=== PATIENT | female | born 1945 | race Caucasian/White ===

== ENCOUNTER → 2023-04-28 08:39 | Outpatient (REF) | payer MEDICARE, BC, SELFPAY | LOC: HWRAD 08:39 | PROVIDERS: ATTENDING PHYSICIAN Physician Assistant Medical; FAMILY PHYSICIAN Family Medicine | DX: M25.562 Pain in left knee (principal) | CPT/HCPCS: 76882 ==

== ENCOUNTER → 2023-05-28 13:02 | Outpatient (REF) | payer MEDICARE, BC, SELFPAY | LOC: PAVMRI 13:02 | PROVIDERS: ATTENDING PHYSICIAN Family Medicine | DX: M25.562 Pain in left knee (principal); R22.42 Localized swelling, mass and lump, left lower limb | CPT/HCPCS: 73721 ==

== ENCOUNTER 2023-07-06 19:33 | Inpatient (IN) | payer MEDICARE, BC, SELFPAY ==
[2023-07-06] VITALS (14 sets, daily range): BP systolic 101–155; BP diastolic 53–94; PULSE 59–70
[2023-07-06 14:38] LABS: % Basophils 0.3 % (0-2); % Immature Granulocytes 0.5 % (0-0.5); % Lymphocytes 16.6 % (20.5-51.1); % Neutrophils 71.6 % (42.2-75.2); Absolute Eosinophils 0.1 10^3/uL (0-0.7); Absolute Lymphocytes 1.1 10^3/uL (1.2-3.4); Absolute Monocytes 0.6 10^3/uL (0.1-0.6); Absolute Neutrophils 4.5 10^3/uL (1.4-6.5); Hematocrit 39.3 % (37.0-47.0); Hemoglobin 13.6 g/dL (12.0-16.0); Mean Corp Hgb Conc. 34.6 g/dL (33.0-37.0); Mean Corpuscular Hgb 30.9 pg (27.0-31.0); Mean Corpuscular Volume 89.3 fL (81.0-99.0); Mean Platelet Volume 9.5 fL (7.4-10.4); Nucleated Red Blood Cells % 0 %; Platelet Count 198 10^3/uL (130-400); Red Cell Dist. Width 13.2 % (11.5-14.5); White Blood Cell Count 6.3 10^3/uL (4.8-10.8)
[2023-07-06 15:10] LABS: ALT (SGPT) 29 U/L (0-35); AST (SGOT) 35 U/L (14-36); Albumin 4.3 g/dl (3.5-5.0); Alkaline Phosphatase 61 U/L (38-126); Blood Urea Nitrogen 20 mg/dl (7-17); Calcium 9.8 mg/dl (8.4-10.2); Carbon Dioxide 33 mmol/L (22-30); Chloride 100 mmol/L (98-107); Glucose 111 mg/dl (70-99); Potassium 2.8 mmol/L (3.5-5.1); Sodium 138 mmol/L (135-145); Total Bilirubin 0.9 mg/dl (0.2-1.3); Total Protein 7.1 g/dl (6.3-8.2); eGFR 57.31
[2023-07-06 15:22] LABS: Troponin I < 0.012 ng/ml
--- NOTE | 2023-07-06 16:06 | ED.GENMED ---
History of Present Illness
General
Chief Complaint: Blood Pressure Problem
Source: patient and spouse
Exam Limitations: none
Time Seen by Provider: 07/06/23 16:00
Nursing documentation reviewed up to this point in time: agreed with
Travel History
Have you had any contact with someone who has COVID-19?: No
Do you have any symptoms of coronavirus? Fever > 100 degrees, chills, cough, shortness of breath, sore throat, loss of taste or smell, muscle aches, or headache?: No
History of Present Illness
History of Present Illness:
78-year-old female with history of A-fib on Eliquis, HTN presents stating that over past 6 days has been feeling 'fuzzy' in her head and fatigued . Denies CP, SOB, abd pain. Denies fever or chills. Denies N/V/D/C.
Past History
Past History
ED Past Medical History: Arrthythmia (Afib many years ago), HTN and Other (Gastric ulcer and hiatal hernia)
ED Past Surgical History: Gynecological and Other
Social History
Tobacco: Non-smoker
Alcohol: None
Drug: None
Personal:
Living: with family
Employment: Retired
Review of Systems
Review of Systems
Allergies reviewed?: Yes
All Other Systems: ROS reviewed and negative except as documented in HPI and ROS
Constitutional: Reports fatigue; Denies fever
Respiratory: Denies trouble breathing
Cardiac: Denies chest pain
ABD/GI: Denies abdominal pain, nausea, vomiting, diarrhea or anorexia
: Denies dysuria, frequency, difficulty voiding or urgency
Musculoskeletal: Reports no symptoms
Skin: Reports no symptoms
Neurological: Reports other (lightheaded); Denies dizzy, headache, weakness or numbness
Phy Exam
Physical Exam
Physical Exam:
GENERAL: No acute distress. A&Ox3.
CONSTITUTIONAL: Afebrile.
EYES: PERRL, conjunctivae normal
ENMT: moist mucus membranes, Pharynx nl
RESPIRATORY: Regular respirations, nonlabored, lungs clear.
CARDIOVASCULAR: Regular rate and rhythm, no murmurs, no rubs.
GI: Soft, nontender, normal BS
MUSCULOSKELETAL: Moves with ease. Well perfused. No edema
SKIN: Warm, dry, pink
PSYCH: Normal mood and affect. Well kept, interactive and appropriate
NEUROLOGIC: Awake, alert and oriented. Speech clear, CN 2-12 intact. ambulates well with steady gait. No focal neurological deficits
Course
Orders/Labs/Results
Orders:
Orders
07/06/23 14:09
Electrocardiogram (*1) Urgent
Reason for Study: Chest Pain
EKG- Treatment ONCE
O2 Therapy [RESP] Urgent
Titrate/Wean O2 to maintain O2 sat greater than (%): 90
Special Instructions: Maintain sats >/=90%
Pulse Ox/spot Check [RESP] Urgent
Quantity: 1
Special Instructions: ON ROOM AIR
07/06/23 14:30
Complete Blood Count/With Diff Urgent
Comprehensive Metabolic Panel Urgent
Magnesium Urgent
Comment: ADD ON
Troponin I Urgent
07/06/23 16:01
0.9% Sodium Chloride 500 ml [Nss] 500 ml IV BOLUS
07/06/23 16:06
Orthostatic VS- Treatment ONCE
07/06/23 16:38
Potassium Chloride [KCl] 20 meq 0.9% Sodium Chloride 250 ml [Nss] 250 ml IV NOW
07/06/23 17:17
Urinalysis Reflex To Culture Urgent
Date Specimen was Collected: 07/06/23
Time Specimen was Collected: 17:02
Urine Microscopic Reflex Cult Urgent
07/06/23 18:35
Add On- LAB Urgent
Tests Added?: Magnesium
07/06/23 19:22
Admit/Transfer Patient As Directed
Co-Sign Provider:
Level of Care: Inpatient admission
Assign to:: Telemetry
Physician / Group: [email or web address]
Diagnosis: symtomatic hypokalemia, dehydration, contraction alkalosis
Reason for Telemetry: Arrhythmia
Date to Stop Telemetry: 07/09/23
Time to Stop Telemetry: 11:00
Reason for Hospitalization: symtomatic hypokalemia, dehydration, contraction alkalosis
Expected length of stay greater than two midnights?: Yes
ELOS- Estimated Length of Stay in days: 2
I certify the patient meets the requirements for IP care: Yes
07/06/23 19:26
Code Status As Directed
Resuscitation Status: Full Code
07/09/23 11:00
DC Protocol for Telemetry ONCE
Abnormal Lab Results
07/06/23 07/06/23
14:30 17:17
Absolute Lymphs (auto) 1.1 L 10^3/uL
(1.2-3.4)
Lymphocytes % 16.6 L %
(20.5-51.1)
Monocytes % 10.0 H %
(1.7-9.3)
Potassium 2.8 L mmol/L
(3.5-5.1)
Carbon Dioxide 33 H mmol/L
(22-30)
BUN 20 H mg/dl
(7-17)
Glucose 111 H mg/dl
(70-99)
Ur Occult Blood Reflex 1+ A
(Negative)
Leukocyte Esterase Rfl Trace A
(Negative)
Urine RBC 3-6 A /HPF
(0-2)
07/06/23 14:30
07/06/23 14:30
Vital Signs
Initial and Last Documented VS:
Initial Vital Signs
Temp Pulse Resp BP Pulse Ox
98.1 F 85 16 132/94 97
07/06/23 14:10 07/06/23 14:10 07/06/23 14:10 07/06/23 14:10 07/06/23 14:10
Last Documented Vital Signs
Temp Pulse Resp BP Pulse Ox
98.2 F 75 17 102/79 94
07/06/23 19:08 07/06/23 19:08 07/06/23 19:08 07/06/23 16:15 07/06/23 19:47
MDM/Problems Addressed
Differential Diagnosis Includes:
dehydration patient, UTI
MDM/Problems Addressed:
78-year-old female with history of A-fib on Eliquis, HTN presents stating that over past 6 days has been feeling 'fuzzy' in her head and fatigued . Denies CP, SOB, abd pain. Denies fever or chills. Denies N/V/D/C.
Afebrile, NAD
NSR, RBBB
4:00 PM
CBC normal
CMP shows hypokalemia with a potassium of 2.8, BUN 20 otherwise no clinically significant abnormality
Troponin within normal limits
Orthostatics negative
6:35 P.M.
Case discussed with Dr. Richter
Plan: Admit: Hypokalemia, Mg++ pending
Chronic conditions affecting care: HTN and Arrhythmia
*Critical Care Note
Total Time (30-74mins, 75-104mins- exclusive of procedures): Not Applicable
ED Attending Note
-
Portions of this chart may have been created with voice recognition software.� Occasional wrong word or��sound alike� substitutions may have occurred due to the inherent limitations of voice recognition software.
Discharge Plan
Departure
Patient Disposition: Admit
Date of Disposition: 07/06/23
Time of Disposition: 18:36
Admit to: Telemetry
Presentation/result/management discussed w/ accepting MD/DO: Hospitalist
Condition: Fair
Discharge Problem:
Acute hypokalemia
Interventions
Interventions:
*Risk Screen - Suicide Last Done: 07/06/23 14:10
*General Assessment Last Done: 07/06/23 14:10
*Neglect/Abuse Screening Last Done: 07/06/23 14:10
*ED COVID-19 Vaccine History Last Done: 07/06/23 14:10
ED- Cardiac Assessment Last Done: 07/06/23 19:45
ED- Neurological Assessment Last Done: 07/06/23 19:46
ED- Pulmonary Assessment Last Done: 07/06/23 19:47
[2023-07-06] MEDS: NSS 500 IV (17:08)
[2023-07-06] MEDS: KCL 260 MEQ IV (17:09)
[2023-07-06 17:31] LABS: Urine Albumin Negative (Neg - Trace); Urine Bilirubin Negative (Negative); Urine Character Clear (Clear); Urine Color Yellow; Urine Glucose Negative (Negative); Urine Ketone Negative (Negative); Urine Leukocyte Trace (Negative); Urine Nitrite Negative (Negative); Urine Occult Blood 1+ (Negative); Urine Urobilinogen Negative (Neg - 1+)
[2023-07-06 17:41] LABS: Urine Squamous Cell 0-2 /LPF (Few)
[2023-07-06 19:10] LABS: Magnesium 2.2 mg/dl (1.6-2.3)
--- NOTE | 2023-07-06 19:18 | HPS.HSE ---
Family Physician
-
Family Physician: Emanuel Fox
Chief Complaint
-
weakness and dizzy
History of Present Illness
78F HX HTN on HCTZ , Chr Eliquis for Prx AF sent to ER by PCP for weakness, dizziness for evaluation.
Weakness
- gradual onset
- No falls
- feeling foggy in the head
- Associated dizziness
- No N/V/D
- omn HCTZ for BP
- Not on K supplelent
AT ER: Lowest BP at ER 102/84
Labs: K 2.8 HCO3 33 BUN 20
Medical History
Past Medical History
Past Medical History: Reports Arrhythmia (Prx AF on Eliquis ), HTN and Hypercholesterolemia
Additional Past Medical History:
Gastric ulcer and hiatal hernia
Past Surgical History: Reports Gynocological
Social History
Tobacco: Non-smoker
Alcohol: None
Drug: None
Personal:
Living: With Family
Family History
Family History: Not pertinent
Allergies / Home Medications
Allergies reflects when Allergies were last updated in [email or web address].
Home Medications with original date entered in [email or web address]
Allergy/Medication List:
Allergies
Allergy/AdvReac Type Severity Reaction Status Date / Time
clarithromycin Allergy Mild Swelling Verified 04/02/23 16:05
erythromycin base Allergy Mild Unknown Verified 04/02/23 16:05
Iodinated Contrast Media Allergy Mild Rash Verified 04/02/23 16:05
Home Medications
cholecalciferol (vitamin D3) 50 mcg (2,000 unit) capsule (Vitamin D3) 2,000 unit PO DAILY 09/17/19
hydrochlorothiazide 25 mg tablet 25 mg PO DAILY 09/17/19
rosuvastatin 20 mg tablet 20 mg PO DAILY 09/17/19
telmisartan 40 mg tablet 40 mg PO DAILY 09/17/19
apixaban 5 mg tablet (Eliquis) 5 mg PO BID 07/06/23
estradiol 10 mcg vaginal tablet (Yuvafem) 10 mcg vaginal MONTHLY PRN hormone replacement 07/06/23
magnesium hydroxide 400 mg/5 mL oral suspension (Milk of Magnesia) 2,400 mg PO DAILYPRN PRN constipation 07/06/23
metoprolol succinate 100 mg tablet,extended release 24 hr (Toprol XL) 100 mg PO DAILY 07/06/23
Review of Systems
-
Constitutional: Reports No Symptoms
EENT: Reports No Symptoms
Respiratory: Reports No Symptoms
Cardiac: Reports No Symptoms
Abdomen/GI: Reports No Symptoms
: Reports No Symptoms
Musculoskeletal: Reports No Symptoms
Skin: Reports No Symptoms
Neurological: Reports Weakness
Endocrine: Reports No Symptoms
Hematologic/Lymphatic: Reports No Symptoms
Psych: Reports No Symptoms
Physical Exam
Vital Signs
Vital Signs
Temp Pulse Resp BP Pulse Ox
98.2 F 75 17 102/79 97
07/06/23 19:08 07/06/23 19:08 07/06/23 19:08 07/06/23 16:15 07/06/23 19:08
Physical Exam
General: No Apparent Distress, Comfortable and Conversant
HEENT: NormoCephalic and Anicteric
Respiratory: Clear; No Wheezes, Rales or Rhonchi
Cardiac: S1/S2, Regular Rhythm and Other (mild hypotensive episode )
Breast: Deferred by me
GI: Soft, Non Tender, Non Distended and Normal Bowel Sounds
Rectal: Deferred by Provider
Genito-urinary: Deferred by me
Musculoskeletal: No Edema
Skin: Warm and Dry
Neuro: AO x 3 and No Motor Deficits
Psych: Calm
Laboratory Results
-
07/06/23 14:30
07/06/23 14:30
Laboratory Results
Total Bilirubin 0.9 mg/dl (0.2-1.3) 07/06/23 14:30
AST 35 U/L (14-36) 07/06/23 14:30
ALT 29 U/L (0-35) 07/06/23 14:30
Alkaline Phosphatase 61 U/L (38-126) 07/06/23 14:30
Troponin I < 0.012 ng/ml 07/06/23 14:30
Data Reviewed
-
Medical Tests (Nuc Med, Echo, EKG etc): Report Reviewed by me
Lab Data: Labs Reviewed by me
Impression/Plan
-
Data
Nl CBC
K 2.8 bl low 3.5s Mg 2.2
CO3 33
BUN 20
e GFR 57 bl > 60
NEG TPNI
NEG UA
EKG
NORMAL SINUS RHYTHM
RIGHT BUNDLE BRANCH BLOCK
ABNORMAL ECG
WHEN COMPARED WITH ECG OF 19-AUG-2021 11:22,
NO SIGNIFICANT CHANGE WAS FOUND
11/01/19 ECHO
Estimated LVEF 55-60%.
Normal diastolic function.
No significant valve disease. Normal PASP.
ASSESSMENT & PLAN
Symptomatic hypokalemia due to HCTZ
Hypotensive due to mild dehydration
suspect contraction alkalosis
- s/p IV KCL 20 at ER
- Repeat KCK 40 [place]
- daily 20 KCL BID in AM x 3 more dose and trend K
- Held HCTZ for now
- IV NS @ 80/H
- f/u ortho [facility] HTN
- held HCTZ
- cont Telmisartan
In NSR
HX Prx AF
- cont Eliquis and Toprol XL
HLD on Rosuvastatin
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
Full code
IP TLM
[2023-07-06] MEDS: KCL 270 MEQ IV (20:10)
[2023-07-07 00:13] VITALS: BP 160/77
[2023-07-07] MEDS: ELIQUIS 5 MG PO ×2 (00:13→08:45)
[2023-07-07] MEDS: KCL 20 MEQ PO ×2 (00:13→08:45)
[2023-07-07 00:21] VITALS: BMI 29.9
--- NOTE | 2023-07-07 00:24 | PTCARENOTE ---
pt is aaox3, no c/o pain, no dizziness. IV potassium running. pt ambulated to room x1. pt is oriented to room w/ call zavala in [facility]. will monitor/.
[2023-07-07 04:41] VITALS: BP 116/103
--- NOTE | 2023-07-07 05:03 | DOWNTIME ---
There was a [employer] Client Application Support Intern Downtime on 07/07/2023 from 0100 to 07/07/2023 at 0439. Downtime documentation of patient's care, including medication administrations, has been reconciled in the electronic record per guidelines. Refer to the
patient's paper chart under the miscellaneous tab to see printed paper medication records and downtime forms.
[2023-07-07 05:58] LABS: Blood Urea Nitrogen 20 mg/dl (7-17); Calcium 9.1 mg/dl (8.4-10.2); Carbon Dioxide 27 mmol/L (22-30); Chloride 109 mmol/L (98-107); Estimated Creatinine Clearance 54 ml/min; Glucose 105 mg/dl (70-99); Magnesium 2.1 mg/dl (1.6-2.3); Potassium 3.7 mmol/L (3.5-5.1); Sodium 140 mmol/L (135-145); eGFR > 60.00
[2023-07-07 06:00] VITALS: BMI 29.9
[2023-07-07 07:17] VITALS: BP 135/71
[2023-07-07 07:18] VITALS: BP 130/82; BP 135/71; BP 146/79; PULSE 75; PULSE 80; PULSE 81
[2023-07-07 07:20] VITALS: BP 146/79
[2023-07-07 07:22] VITALS: BP 130/82
--- NOTE | 2023-07-07 08:04 | PTCARENOTE ---
Received patient this morning resting in bed. Orthostatic VS done which were negative, call zavala within reach, patient ordering breakfast.
--- NOTE | 2023-07-07 08:12 | W.PN.HOSP.TC ---
Today's Communication/Plan
-
Discharge
Assessment / Plan
Assessment / Plan
Gen-AAOx3, NAD
HEENT-NC, AT, anicteric, clear oral mm
Neck-supple
CV-reg, no M, +S1/S2
Lungs-clear B/L
Abd-soft, NT, ND
Ext-no edema
Musculoskeletal-no cyanosis, clubbing
Skin-warm and dry
Neuro-grossly non-focal
Psych-calm, cooperative
Symptomatic hypotension -I looked at the readings of her blood pressures at home, they are running systolics between 95 and 105. At this point we can permanently discontinue hydrochlorothiazide. Continue to monitor blood pressures at home.
She is not orthostatic.
Hypokalemia -treated and resolved.
Paroxysmal atrial fibrillation -stable. Continue Eliquis.
Essential hypertension -as above.
Hyperlipidemia -continue Crestor.
Full code
Dispo -medically stable for discharge home today. Follow-up with PCP and cardiology.
Anticipated Discharge: Today
Subjective/Interval History
-
Date of Service: July 07, 2023
Patient seen and examined. Feeling much better. No complaints.
Objective Data
-
Labs:
Laboratory Results
07/07/23
05:00
Sodium 140
Potassium 3.7 D
Chloride 109 H
Carbon Dioxide 27
BUN 20 H
Creatinine 0.8
Glucose 105 H
Calcium 9.1
Vital Signs:
Vital Signs
Temp Pulse Resp BP Pulse Ox
97.5 F 88 18 130/82 95
07/07/23 07:25 07/07/23 07:22 07/07/23 07:25 07/07/23 07:22 07/07/23 07:25
Review of Systems
-
History Source: Patient
All other systems: Reviewed and negative
--- NOTE | 2023-07-07 08:17 | W.DS.TRANS ---
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
-
Discharge Instructions:
Discharge Diagnosis/Procedures Symptomatic hypotension, hypokalemia
Diet Low Cholesterol,Low Fat
Activity As tolerated
Driving Restrictions As prior to admission
Bathing Restrictions None
Instructions:
Stand-Alone Forms:
Changes to Home Medications: Yes
Discharge Medications:
DC Medications w/original date entered in [employer]
cholecalciferol (vitamin D3) 50 mcg (2,000 unit) capsule (Vitamin D3) 2,000 unit PO DAILY 09/17/19
rosuvastatin 20 mg tablet 20 mg PO DAILY 09/17/19
telmisartan 40 mg tablet 40 mg PO DAILY 09/17/19
apixaban 5 mg tablet (Eliquis) 5 mg PO BID 07/06/23
estradiol 10 mcg vaginal tablet (Yuvafem) 10 mcg vaginal MONTHLY PRN hormone replacement 07/06/23
magnesium hydroxide 400 mg/5 mL oral suspension (Milk of Magnesia) 2,400 mg PO DAILYPRN PRN constipation 07/06/23
metoprolol succinate 100 mg tablet,extended release 24 hr (Toprol XL) 100 mg PO DAILY 07/06/23
polyethylene glycol 3350 17 gram oral powder packet (HealthyLax) 17 g PO DAILYPRN PRN constipation #0 ea 07/07/23
Home Medication Changes
Stop HCTZ
Pending Results: No
[2023-07-07] MEDS: CRESTOR 20 MG PO (08:45)
[2023-07-07] MEDS: COZAAR 25 MG PO (08:45)
[2023-07-07] MEDS: FLUSH (NSS) 1 FLUSH IV (08:45)
[2023-07-07] MEDS: TOPROL XL 100 MG PO (08:45)
--- NOTE | 2023-07-07 08:51 | CM ---
Reviewed chart. Met with Mrs. Cervantes to review discharge plans. She states prior to admission she resides with her spouse in a spilt level home without any steps to enter. She states she has six steps to get to bedroom/full bathroom. She states
prior to admission she was independent with ambulation and adls. She states she does not have any DME in the home. She states she uses a knee brace. She states she has a prescription plan and uses [facility]. Medical work-up in progress. The
discharge plan is to return home with her spouse when medically stable.
--- NOTE | 2023-07-07 09:50 | PTCARENOTE ---
Patient seen by hospitalist and is ok for discharge. Reviewed discharge instructions with the patient, she is aware to stop HCTZ and follow up with her primary within one week. Patient discharged home with her .
== END 2023-07-07 09:54 | disposition home or self-care (01) | DRG 315 ==
LOC: IVU 19:33
PROVIDERS: Registered Nurse; ADMITTING PHYSICIAN Internal Medicine; ATTENDING PHYSICIAN Hospitalist; EMERGENCY PHYSICIAN Emergency Medicine; FAMILY PHYSICIAN Family Medicine
DX: I95.9 Hypotension, unspecified (principal); E87.3 Alkalosis; E86.0 Dehydration; E87.6 Hypokalemia; I10 Essential (primary) hypertension; I48.0 Paroxysmal atrial fibrillation; E78.00 Pure hypercholesterolemia, unspecified
CPT/HCPCS: 80048; 80053; 81003; 81015; 83735; 84484; 85025; 93005; 96360; 96361; 99285

== ENCOUNTER → 2023-09-02 08:02 | Outpatient (REF) | payer MEDICARE, BC, SELFPAY | LOC: RCS 08:02 | PROVIDERS: ATTENDING PHYSICIAN Internal Medicine Cardiovascular Disease; FAMILY PHYSICIAN Family Medicine | DX: I48.0 Paroxysmal atrial fibrillation (principal); I45.10 Unspecified right bundle-branch block | CPT/HCPCS: 93306 ==

== ENCOUNTER → 2023-10-28 14:49 | Outpatient (REF) | payer MEDICARE, BC, SELFPAY ==
[2023-10-28 16:45] LABS: Blood Urea Nitrogen 23 mg/dl (7-17); Calcium 9.9 mg/dl (8.4-10.2); Carbon Dioxide 31 mmol/L (22-30); Chloride 100 mmol/L (98-107); Glucose 91 mg/dl (70-99); Potassium 3.9 mmol/L (3.5-5.1); Sodium 138 mmol/L (135-145); eGFR > 60.00
== END ==
LOC: REG 14:49
PROVIDERS: ATTENDING PHYSICIAN Family Medicine
DX: I10 Essential (primary) hypertension (principal)
CPT/HCPCS: 36415; 80048

== ENCOUNTER → 2023-12-14 12:05 | Outpatient (REF) | payer MEDICARE, BC, SELFPAY ==
[2023-12-14 13:42] LABS: % Basophils 0.5 % (0-2); % Eosinophils 1.8 % (0-6); % Immature Granulocytes 0.2 % (0-0.5); % Lymphocytes 18.2 % (20.5-51.1); % Monocytes 8.7 % (1.7-9.3); % Neutrophils 70.6 % (42.2-75.2); Absolute Eosinophils 0.1 10^3/uL (0-0.7); Absolute Monocytes 0.5 10^3/uL (0.1-0.6); Hematocrit 40.4 % (37.0-47.0); Hemoglobin 13.3 g/dL (12.0-16.0); Mean Corp Hgb Conc. 32.9 g/dL (33.0-37.0); Mean Corpuscular Hgb 30.6 pg (27.0-31.0); Mean Corpuscular Volume 93.1 fL (81.0-99.0); Nucleated Red Blood Cells % 0 %; Platelet Count 202 10^3/uL (130-400); Red Blood Cell Count 4.34 10^6/uL (4.20-5.40); Red Cell Dist. Width 13.8 % (11.5-14.5); White Blood Cell Count 5.7 10^3/uL (4.8-10.8)
[2023-12-14 13:59] LABS: ALT (SGPT) 23 U/L (0-35); AST (SGOT) 34 U/L (14-36); Albumin 4.4 g/dl (3.5-5.0); Alkaline Phosphatase 68 U/L (38-126); Blood Urea Nitrogen 20 mg/dl (7-17); Calcium 9.6 mg/dl (8.4-10.2); Carbon Dioxide 30 mmol/L (22-30); Chloride 104 mmol/L (98-107); Glucose 88 mg/dl (70-99); HDL Cholesterol 55 mg/dl; LDL Cholesterol, Calculated 96 mg/dl; Potassium 4.1 mmol/L (3.5-5.1); Sodium 142 mmol/L (135-145); Total Bilirubin 1.5 mg/dl (0.2-1.3); Total Cholesterol 172 mg/dl (50-199); Total Protein 6.9 g/dl (6.3-8.2); Triglyceride 105 mg/dl (10-149); Very Low Density Lipoprotein 21 mg/dl (0-30); eGFR > 60.00
[2023-12-14 14:05] LABS: Urine Albumin Negative (Neg - Trace); Urine Bilirubin Negative (Negative); Urine Character Clear (Clear); Urine Color Yellow; Urine Glucose Negative (Negative); Urine Ketone Negative (Negative); Urine Leukocyte Trace (Negative); Urine Nitrite Negative (Negative); Urine Occult Blood Negative (Negative); Urine Urobilinogen Negative (Neg - 1+)
[2023-12-14 14:14] LABS: Glycohemoglobin (HgbA1c) 6.1 % (4.0-5.6)
[2023-12-14 14:16] LABS: Vitamin D, 25-OH*** 31.6 ng/mL (30-80)
[2023-12-14 14:18] LABS: Urine Squamous Cell 0-2 /LPF (Few); Urine Urothelial Cell 0-2 /LPF (FEW)
[2023-12-14 14:20] LABS: Urine Red Blood Cell 0-2 /HPF (0-2); Urine White Cell 0-2 /HPF (0-5)
[2023-12-14 14:30] LABS: TSH 1.11 uIU/ml (0.47-4.68)
== END ==
LOC: REG 12:05
PROVIDERS: ATTENDING PHYSICIAN Family Medicine
DX: Z00.00 Encounter for general adult medical examination without abnormal findings (principal); I48.0 Paroxysmal atrial fibrillation; R73.01 Impaired fasting glucose; E78.5 Hyperlipidemia, unspecified; E55.9 Vitamin D deficiency, unspecified
CPT/HCPCS: 36415; 80053; 80061; 81003; 81015; 82306; 83036; 84443; 85025

== ENCOUNTER → 2024-04-21 12:58 | Outpatient (REF) | payer MEDICARE, BC, SELFPAY ==
[2024-04-21 13:57] LABS: % Basophils 0.4 % (0-2); % Eosinophils 2.6 % (0-6); % Immature Granulocytes 0.4 % (0-0.5); % Lymphocytes 22.6 % (20.5-51.1); % Monocytes 8.9 % (1.7-9.3); % Neutrophils 65.1 % (42.2-75.2); Absolute Eosinophils 0.1 10^3/uL (0-0.7); Absolute Lymphocytes 1.2 10^3/uL (1.2-3.4); Absolute Monocytes 0.5 10^3/uL (0.1-0.6); Absolute Neutrophils 3.5 10^3/uL (1.4-6.5); Hematocrit 41.2 % (37.0-47.0); Hemoglobin 13.7 g/dL (12.0-16.0); Mean Corp Hgb Conc. 33.3 g/dL (33.0-37.0); Mean Corpuscular Volume 93.2 fL (81.0-99.0); Mean Platelet Volume 10.1 fL (7.4-10.4); Nucleated Red Blood Cells % 0 %; Platelet Count 174 10^3/uL (130-400); Red Blood Cell Count 4.42 10^6/uL (4.20-5.40); Red Cell Dist. Width 13.2 % (11.5-14.5); White Blood Cell Count 5.3 10^3/uL (4.8-10.8)
[2024-04-21 14:16] LABS: ALT (SGPT) 20 U/L (0-35); AST (SGOT) 29 U/L (14-36); Albumin 4.3 g/dl (3.5-5.0); Alkaline Phosphatase 67 U/L (38-126); Blood Urea Nitrogen 33 mg/dl (7-17); Calcium 9.2 mg/dl (8.4-10.2); Carbon Dioxide 30 mmol/L (22-30); Chloride 102 mmol/L (98-107); Glucose 99 mg/dl (70-99); HDL Cholesterol 63 mg/dl; LDL Cholesterol, Calculated 77 mg/dl; Potassium 3.9 mmol/L (3.5-5.1); Sodium 140 mmol/L (135-145); Total Bilirubin 1.3 mg/dl (0.2-1.3); Total Cholesterol 154 mg/dl (50-199); Total Protein 6.6 g/dl (6.3-8.2); Triglyceride 74 mg/dl (10-149); Very Low Density Lipoprotein 14 mg/dl (0-30); eGFR > 60.00
[2024-04-21 14:34] LABS: Glycohemoglobin (HgbA1c) 6.2 % (4.0-5.6)
== END ==
LOC: REG 12:58
PROVIDERS: ATTENDING PHYSICIAN Family Medicine; OTHER PHYSICIAN Internal Medicine
DX: I48.0 Paroxysmal atrial fibrillation (principal); I10 Essential (primary) hypertension; R73.01 Impaired fasting glucose; E78.5 Hyperlipidemia, unspecified
CPT/HCPCS: 36415; 80053; 80061; 83036; 85025

== ENCOUNTER 2024-07-07 06:27 | Day surgery (SDC) | payer MEDICARE, BC, SELFPAY | END 2024-07-07 10:56 | disposition home or self-care (01) | LOC: GI 06:27 | PROVIDERS: ATTENDING PHYSICIAN Internal Medicine Gastroenterology | DX: Z12.11 Encounter for screening for malignant neoplasm of colon (principal); K64.0 First degree hemorrhoids; K57.30 Diverticulosis of large intestine without perforation or abscess without bleeding; R12 Heartburn; K22.89 Other specified disease of esophagus; K44.9 Diaphragmatic hernia without obstruction or gangrene; K31.89 Other diseases of stomach and duodenum; D12.3 Benign neoplasm of transverse colon; D12.2 Benign neoplasm of ascending colon; D12.4 Benign neoplasm of descending colon; K63.5 Polyp of colon; K31.A11 Gastric intestinal metaplasia without dysplasia, involving the antrum; K22.70 Barrett's esophagus without dysplasia; Z86.0100 Personal history of colon polyps, unspecified | CPT/HCPCS: 45385; 45381; 45380; 43239; 88305; 88342 ==

== ENCOUNTER 2024-09-01 06:29 | Day surgery (SDC) | payer MEDICARE, BC, SELFPAY | END 2024-09-01 14:02 | disposition home or self-care (01) | LOC: GI 06:29 | PROVIDERS: ATTENDING PHYSICIAN Internal Medicine Gastroenterology | DX: K44.9 Diaphragmatic hernia without obstruction or gangrene (principal); K22.89 Other specified disease of esophagus; K22.70 Barrett's esophagus without dysplasia; K31.89 Other diseases of stomach and duodenum; K31.A29 Gastric intestinal metaplasia with dysplasia, unspecified; K31.A11 Gastric intestinal metaplasia without dysplasia, involving the antrum | CPT/HCPCS: 43239; 88305; 88342 ==

== ENCOUNTER → 2024-12-28 11:21 | Outpatient (REF) | payer MEDICARE, BC, SELFPAY ==
[2024-12-28 12:42] LABS: Glycohemoglobin (HgbA1c) 6.2 % (4.0-5.6)
[2024-12-28 13:21] LABS: ALT (SGPT) 24 U/L (0-35); AST (SGOT) 34 U/L (14-36); Albumin 4.3 g/dl (3.5-5.0); Alkaline Phosphatase 46 U/L (38-126); Blood Urea Nitrogen 19 mg/dl (7-17); Calcium 9.6 mg/dl (8.4-10.2); Carbon Dioxide 28 mmol/L (22-30); Chloride 104 mmol/L (98-107); Glucose 99 mg/dl (70-99); HDL Cholesterol 57 mg/dl; LDL Cholesterol, Calculated 68 mg/dl; Potassium 3.5 mmol/L (3.5-5.1); Sodium 138 mmol/L (135-145); Total Protein 6.9 g/dl (6.3-8.2); Very Low Density Lipoprotein 18 mg/dl (0-30); eGFR > 60.00
== END ==
LOC: REG 11:21
PROVIDERS: ATTENDING PHYSICIAN Family Medicine
DX: I48.0 Paroxysmal atrial fibrillation (principal); I10 Essential (primary) hypertension; E78.5 Hyperlipidemia, unspecified; R73.03 Prediabetes; K22.70 Barrett's esophagus without dysplasia; K21.9 Gastro-esophageal reflux disease without esophagitis; E66.09 Other obesity due to excess calories
CPT/HCPCS: 36415; 80053; 80061; 83036